=== PATIENT | male | born 1960 | race Caucasian/White ===

== ENCOUNTER 2017-07-05 12:13 | Emergency (ER) | payer OTHER ==
[~2017-07-05] VITALS: Ht 203.2 cm; Wt 85.0 kg
[2017-07-05] MEDS ORDERED: METOPROL TAR25 MG PO (12:27)
[2017-07-05] MEDS ORDERED: METO25TAB PO (12:27)
[2017-07-05] MEDS ORDERED: ZESTRIL10 M1 PO (12:27)
[2017-07-05 13:33] LABS: HEMATOCRIT 40.3 % (39.0-50.0); HEMOGLOBIN 14.2 g/dl (14.0-18.0); IMMATURE GRANULOCYTES 0.8 % (0.0-1.0); MEAN CELL VOLUME 99.3 fL CALC (80.0-100.0); MEAN CORPUSCULAR HGB CONC 35.2 g/L CALC (32.0-36.0); PLATELET COUNT 200 thou/uL (130-400); RED BLOOD COUNT 4.06 mill/uL (4.70-6.10); RED CELL DISTRI WIDTH 12.3 % (11.5-15.5)
[2017-07-05 13:57] LABS: ANION GAP 17 (6-22 (CALC)); BUN 11 mg/dL (9-20); BUN/CREATININE RATIO 13 (12-20 (CALC)); CARBON DIOXIDE 22 mmol/l (22-30); CHLORIDE 98 mmol/l (95-108); CREATININE 0.8 mg/dL (0.7-1.3); GFR > 60 ML/MIN (>=60 (CALC)); GFR FOR AFR.AMER. > 60 ML/MIN (>=60 (CALC)); GLUCOSE 135 mg/dL (75-110); POTASSIUM 4.9 mmol/l (3.5-5.1); SODIUM 132 mmol/l (137-146)
[2017-07-05] MEDS ORDERED: CLEOCIN300 MG PO (14:54)
[2017-07-05 15:03] LABS: MANUAL DIFFERENTIAL YES
[2017-07-05 15:05] LABS: BAND 77 % (0-8)
[2017-07-05 15:16] VITALS: BP 100/61
[2017-07-06] MEDS ORDERED: ZPAK PO (10:24)
== END 2017-07-05 15:16 | disposition home or self-care (01) | DRG 605 ==
LOC: ED 12:13
PROVIDERS: Emergency Medicine
DX: S61.432A Puncture wound without foreign body of left hand, initial encounter (principal); L03.114 Cellulitis of left upper limb; R50.9 Fever, unspecified; W55.03XA Scratched by cat, initial encounter; Y93.9 Activity, unspecified; Y92.009 Unspecified place in unspecified non-institutional (private) residence as the place of occurrence of the external cause

== ENCOUNTER 2017-07-06 09:33 | Emergency (ER) | payer OTHER ==
[~2017-07-06] VITALS: Ht 172.7 cm; Wt 80.0 kg
[~2017-07-06 09:33] MED LIST: CLEOCIN300 MG PO; METO25TAB PO; METOPROL TAR25 MG PO; ZESTRIL10 M1 PO
[2017-07-06] MEDS ORDERED: ZPAK PO (10:24)
[2017-07-06 10:35] VITALS: BP 113/75
== END 2017-07-06 10:36 | disposition home or self-care (01) | DRG 950 ==
LOC: ED
DX: S61.432D Puncture wound without foreign body of left hand, subsequent encounter (principal); W55.03XD Scratched by cat, subsequent encounter

== ENCOUNTER 2017-07-09 13:28 | Emergency (ER) | payer OTHER ==
[~2017-07-09] VITALS: Ht 172.7 cm; Wt 70.0 kg
[~2017-07-09 13:28] MED LIST changes: +ZPAK PO
[2017-07-09 14:00] VITALS: BP 92/59
== END 2017-07-09 14:05 | disposition home or self-care (01) | DRG 950 ==
LOC: ED 13:28
DX: S61.432D Puncture wound without foreign body of left hand, subsequent encounter (principal); W55.03XD Scratched by cat, subsequent encounter

== ENCOUNTER 2017-12-18 12:35 | Inpatient (IN) | payer OTHER ==
[2017-12-18] VITALS (21 sets, daily range): BP systolic 94–154; BP diastolic 60–120
[~2017-12-18] VITALS: Ht 172.7 cm; Wt 86.0 kg
[2017-12-18] MEDS ORDERED: ASPIRIN81 MG PO (13:22)
[2017-12-18 13:29] LABS: HEMATOCRIT 42.8 % (39.0-50.0); HEMOGLOBIN 15.4 g/dl (14.0-18.0); IMMATURE GRANULOCYTES 0.5 % (0.0-1.0); MEAN CELL VOLUME 94.9 fL CALC (80.0-100.0); MEAN CORPUSCULAR HGB 34.1 pG CALC (26.0-32.0); NEUT# 7.6 thou/uL (1.82-7.42); RED BLOOD COUNT 4.51 mill/uL (4.70-6.10); RED CELL DISTRI WIDTH 12.9 % (11.5-15.5)
[2017-12-18 13:56] LABS: ALBUMIN 4.7 g/dL (3.2-5.0); ALKALINE PHOSPHATASE 106 u/l (38-126); BUN 7 mg/dL (9-20); BUN/CREATININE RATIO 9 (12-20 (CALC)); CARBON DIOXIDE 21 mmol/l (22-30); CHLORIDE 88 mmol/l (95-108); CREATININE 0.8 mg/dL (0.7-1.3); GFR > 60 ML/MIN (>=60 (CALC)); GFR FOR AFR.AMER. > 60 ML/MIN (>=60 (CALC)); SGOT/AST 86 u/l (17-59); SGPT/ALT 90 u/l (21-72); SODIUM 127 mmol/l (137-146)
[2017-12-18 14:06] LABS: ANION GAP 23 (6-22 (CALC))
[2017-12-18 14:10] LABS: POTASSIUM 5.1 mmol/l (3.5-5.1)
[2017-12-18 14:26] LABS: TSH, 3RD GENERATION 1.75 uIU/mL (0.47 - 4.68)
[2017-12-19] VITALS (19 sets, daily range): BP systolic 114–174; BP diastolic 37–104
[2017-12-19 05:16] LABS: HEMATOCRIT 41.9 % (39.0-50.0); HEMOGLOBIN 14.5 g/dl (14.0-18.0); MEAN CELL VOLUME 98.6 fL CALC (80.0-100.0); MEAN CORPUSCULAR HGB 34.1 pG CALC (26.0-32.0); MEAN CORPUSCULAR HGB CONC 34.6 g/L CALC (32.0-36.0); RED BLOOD COUNT 4.25 mill/uL (4.70-6.10); RED CELL DISTRI WIDTH 13.3 % (11.5-15.5)
[2017-12-19 05:26] LABS: ALBUMIN 3.8 g/dL (3.2-5.0); ALKALINE PHOSPHATASE 89 u/l (38-126); BUN 8 mg/dL (9-20); BUN/CREATININE RATIO 11 (12-20 (CALC)); CARBON DIOXIDE 24 mmol/l (22-30); CREATININE 0.8 mg/dL (0.7-1.3); GFR > 60 ML/MIN (>=60 (CALC)); GFR FOR AFR.AMER. > 60 ML/MIN (>=60 (CALC)); POTASSIUM 4.7 mmol/l (3.5-5.1); SGOT/AST 51 u/l (17-59); SGPT/ALT 69 u/l (21-72); TOTAL PROTEIN 6.8 g/dL (6.3-8.2)
[2017-12-19 05:32] LABS: ANION GAP 16 (6-22 (CALC)); MAGNESIUM 2.7 mg/dL (1.6-2.3); SODIUM 136 mmol/l (137-146)
[2017-12-19 05:33] LABS: CHLORIDE 101 mmol/l (95-108)
[2017-12-20] VITALS (10 sets, daily range): BP systolic 128–153; BP diastolic 63–91
[2017-12-20 05:04] LABS: HEMATOCRIT 37.9 % (39.0-50.0); HEMOGLOBIN 13.3 g/dl (14.0-18.0); MEAN CELL VOLUME 97.7 fL CALC (80.0-100.0); MEAN CORPUSCULAR HGB 34.3 pG CALC (26.0-32.0); MEAN CORPUSCULAR HGB CONC 35.1 g/L CALC (32.0-36.0); RED BLOOD COUNT 3.88 mill/uL (4.70-6.10); RED CELL DISTRI WIDTH 13.1 % (11.5-15.5)
[2017-12-20 05:27] LABS: ANION GAP 17 (6-22 (CALC)); BUN 6 mg/dL (9-20); BUN/CREATININE RATIO 8 (12-20 (CALC)); CARBON DIOXIDE 22 mmol/l (22-30); CHLORIDE 103 mmol/l (95-108); CREATININE 0.8 mg/dL (0.7-1.3); GFR > 60 ML/MIN (>=60 (CALC)); GFR FOR AFR.AMER. > 60 ML/MIN (>=60 (CALC)); POTASSIUM 4.2 mmol/l (3.5-5.1); SODIUM 138 mmol/l (137-146)
[2017-12-20] MEDS ORDERED: ELIQUIS5 MG PO (11:56)
[2017-12-20] MEDS ORDERED: AMIODARONE200 MG PO (11:56)
== END 2017-12-20 15:15 | disposition home or self-care (01) | DRG 309 ==
LOC: ED 12:35 → ED-I 14:27 → ED 14:44 → ICU 14:45
PROVIDERS: Emergency Medicine; ADMIT Internal Medicine; ATTEND Internal Medicine
PROC: 3E0234Z Introduction of Serum, Toxoid and Vaccine into Muscle, Percutaneous Approach (ICD-10-PCS; principal; 2017-12-20)
DX: I48.0 Paroxysmal atrial fibrillation (principal); E87.1 Hypo-osmolality and hyponatremia; I48.92 Unspecified atrial flutter; I10 Essential (primary) hypertension; F10.20 Alcohol dependence, uncomplicated; Z23 Encounter for immunization
CPT/HCPCS: J0282; J1650; J3475

== ENCOUNTER 2018-01-10 14:50 | Emergency (ER) | payer OTHER ==
[~2018-01-10] VITALS: Ht 172.7 cm; Wt 80.0 kg
[~2018-01-10 14:50] MED LIST changes: +AMIODARONE200 MG PO; +ASPIRIN81 MG PO; +ELIQUIS5 MG PO
[2018-01-10 15:30] LABS: HEMATOCRIT 39.8 % (39.0-50.0); HEMOGLOBIN 14.3 g/dl (14.0-18.0); IMMATURE GRANULOCYTES 0.5 % (0.0-1.0); MEAN CELL VOLUME 97.1 fL CALC (80.0-100.0); MEAN CORPUSCULAR HGB 34.9 pG CALC (26.0-32.0); MEAN CORPUSCULAR HGB CONC 35.9 g/L CALC (32.0-36.0); NEUT# 5.07 thou/uL (1.82-7.42); RED BLOOD COUNT 4.1 mill/uL (4.70-6.10); RED CELL DISTRI WIDTH 12.5 % (11.5-15.5)
[2018-01-10 15:41] LABS: ALBUMIN 4.5 g/dL (3.2-5.0); ALKALINE PHOSPHATASE 79 u/l (38-126); BILIRUBIN, TOTAL 0.6 mg/dL (0.0-1.4); BUN 9 mg/dL (9-20); BUN/CREATININE RATIO 11 (12-20 (CALC)); CARBON DIOXIDE 23 mmol/l (22-30); CREATININE 0.8 mg/dL (0.7-1.3); GFR > 60 ML/MIN (>=60 (CALC)); GFR FOR AFR.AMER. > 60 ML/MIN (>=60 (CALC)); POTASSIUM 4.4 mmol/l (3.5-5.1); SGOT/AST 42 u/l (17-59); SGPT/ALT 55 u/l (21-72)
[2018-01-10 15:42] LABS: ANION GAP 19 (6-22 (CALC)); CHLORIDE 90 mmol/l (95-108); SODIUM 128 mmol/l (137-146)
[2018-01-10 16:40] LABS: URINE BILIRUBIN - DIPSTICK NEGATIVE (NEGATIVE); URINE BLOOD DIPSTICK NEGATIVE (NEGATIVE); URINE COLOR YELLOW; URINE GLUCOSE - DIPSTICK NEGATIVE (NEGATIVE); URINE KETONE NEGATIVE (NEGATIVE); URINE LEUK ESTERASE NEGATIVE (NEGATIVE); URINE NITRITE - DIPSTICK NEGATIVE (Negative); URINE PROTEIN - DIPSTICK NEGATIVE (NEG-TRACE); URINE UROBILINOGEN - DIPSTICK 0.2 E.U./dL (0.2)
[2018-01-10 16:42] LABS: URINE CLARITY CLEAR
[2018-01-10 18:10] VITALS: BP 136/83
== END 2018-01-10 18:04 | disposition home or self-care (01) | DRG 641 ==
LOC: ED 14:50
PROVIDERS: Emergency Medicine
DX: E87.1 Hypo-osmolality and hyponatremia (principal); I11.9 Hypertensive heart disease without heart failure; F17.210 Nicotine dependence, cigarettes, uncomplicated

== ENCOUNTER 2018-01-26 15:18 | Emergency (ER) | payer OTHER ==
[~2018-01-26] VITALS: Ht 172.7 cm; Wt 86.4 kg
[2018-01-26 16:22] LABS: HEMATOCRIT 38.2 % (39.0-50.0); IMMATURE GRANULOCYTES 1.2 % (0.0-1.0); MEAN CELL VOLUME 95.7 fL CALC (80.0-100.0); MEAN CORPUSCULAR HGB 35.1 pG CALC (26.0-32.0); MEAN CORPUSCULAR HGB CONC 36.6 g/L CALC (32.0-36.0); NEUT# 6.29 thou/uL (1.82-7.42); RED BLOOD COUNT 3.99 mill/uL (4.70-6.10); RED CELL DISTRI WIDTH 12.2 % (11.5-15.5)
[2018-01-26 16:31] LABS: ALBUMIN 4.4 g/dL (3.2-5.0); ALKALINE PHOSPHATASE 95 u/l (38-126); BILIRUBIN, TOTAL 0.6 mg/dL (0.0-1.4); BUN 8 mg/dL (9-20); BUN/CREATININE RATIO 12 (12-20 (CALC)); CARBON DIOXIDE 20 mmol/l (22-30); CHLORIDE 85 mmol/l (95-108); CREATININE 0.7 mg/dL (0.7-1.3); GFR > 60 ML/MIN (>=60 (CALC)); GFR FOR AFR.AMER. > 60 ML/MIN (>=60 (CALC)); LIPASE 121 u/l (23-300); POTASSIUM 4.6 mmol/l (3.5-5.1); SGOT/AST 41 u/l (17-59); SGPT/ALT 54 u/l (21-72); TOTAL PROTEIN 7.7 g/dL (6.3-8.2)
[2018-01-26 16:39] LABS: ANION GAP 20 (6-22 (CALC)); SODIUM 120 mmol/l (137-146)
[2018-01-26 19:18] LABS: URINE BILIRUBIN - DIPSTICK NEGATIVE (NEGATIVE); URINE BLOOD DIPSTICK NEGATIVE (NEGATIVE); URINE COLOR YELLOW; URINE GLUCOSE - DIPSTICK NEGATIVE (NEGATIVE); URINE KETONE NEGATIVE (NEGATIVE); URINE LEUK ESTERASE NEGATIVE (NEGATIVE); URINE NITRITE - DIPSTICK NEGATIVE (Negative); URINE PROTEIN - DIPSTICK NEGATIVE (NEG-TRACE); URINE SPECIFIC GRAVITY <=1.005; URINE UROBILINOGEN - DIPSTICK 0.2 E.U./dL (0.2)
[2018-01-26 19:23] LABS: URINE CLARITY CLEAR
[2018-01-26 20:31] VITALS: BP 140/80
== END 2018-01-26 20:31 | DRG 65 ==
LOC: ED 15:18
PROVIDERS: Family Medicine
DX: I63.9 Cerebral infarction, unspecified (principal); E87.1 Hypo-osmolality and hyponatremia; I48.91 Unspecified atrial fibrillation; R55 Syncope and collapse; F17.220 Nicotine dependence, chewing tobacco, uncomplicated; H53.8 Other visual disturbances; R53.1 Weakness; I10 Essential (primary) hypertension; R11.2 Nausea with vomiting, unspecified; R42 Dizziness and giddiness

== ENCOUNTER 2018-07-29 20:53 | Emergency (ER) | payer OTHER ==
[~2018-07-29] VITALS: Ht 172.7 cm; Wt 86.0 kg
[2018-07-29 22:18] LABS: HEMATOCRIT 37.7 % (39.0-50.0); HEMOGLOBIN 13.5 g/dl (14.0-18.0); IMMATURE GRANULOCYTES 0.5 % (0.0-5.0); MEAN CELL VOLUME 97.4 fL CALC (80.0-100.0); MEAN CORPUSCULAR HGB 34.9 pG CALC (26.0-32.0); MEAN CORPUSCULAR HGB CONC 35.8 g/L CALC (32.0-36.0); NEUT# 5.84 thou/uL (1.82-7.42); RED BLOOD COUNT 3.87 mill/uL (4.70-6.10); RED CELL DISTRI WIDTH 11.9 % (11.5-15.5)
[2018-07-29 22:43] LABS: ALBUMIN 4.3 g/dL (3.2-5.0); ALKALINE PHOSPHATASE 78 u/l (38-126); BILIRUBIN, TOTAL 0.5 mg/dL (0.0-1.4); BUN 10 mg/dL (9-20); BUN/CREATININE RATIO 10 (12-20 (CALC)); CARBON DIOXIDE 18 mmol/l (22-30); CREATININE 1.1 mg/dL (0.7-1.3); GFR > 60 ML/MIN (>=60 (CALC)); GFR FOR AFR.AMER. > 60 ML/MIN (>=60 (CALC)); POTASSIUM 4.5 mmol/l (3.5-5.1); SGOT/AST 55 u/l (17-59); TOTAL PROTEIN 7.3 g/dL (6.3-8.2)
[2018-07-29 22:53] LABS: MYOGLOBIN 58 ng/mL (0 - 121)
[2018-07-29 23:04] LABS: ANION GAP 20 (6-22 (CALC)); CHLORIDE 97 mmol/l (95-108); SODIUM 130 mmol/l (137-146)
[2018-07-29 23:21] LABS: URINE BILIRUBIN - DIPSTICK NEGATIVE (NEGATIVE); URINE BLOOD DIPSTICK NEGATIVE (NEGATIVE); URINE COLOR YELLOW; URINE GLUCOSE - DIPSTICK NEGATIVE (NEGATIVE); URINE KETONE NEGATIVE (NEGATIVE); URINE LEUK ESTERASE NEGATIVE (NEGATIVE); URINE NITRITE - DIPSTICK NEGATIVE (Negative); URINE PROTEIN - DIPSTICK NEGATIVE (NEG-TRACE); URINE SPECIFIC GRAVITY <=1.005; URINE UROBILINOGEN - DIPSTICK 0.2 E.U./dL (0.2)
[2018-07-29 23:23] LABS: BARBITURATES NEGATIVE (NEGATIVE); COCAINE NEGATIVE (NEGATIVE); METHADONE NEGATIVE (NEGATIVE); OXCYCODONE NEGATIVE (NEGATIVE); TETRAHYDROCANNABIONOL NEGATIVE (NEGATIVE); TRICYLIC ANTIDEPRESSANTS NEGATIVE (NEGATIVE)
[2018-07-29 23:26] LABS: URINE CLARITY CLEAR
[2018-07-29] MEDS ORDERED: AMOXICILLIN500 MG PO (23:50)
[2018-07-30 00:58] VITALS: BP 126/70
== END 2018-07-30 00:53 | disposition home or self-care (01) | DRG 153 ==
LOC: ED 20:53
PROVIDERS: Emergency Medicine
DX: J02.0 Streptococcal pharyngitis (principal); F41.9 Anxiety disorder, unspecified; I10 Essential (primary) hypertension; I48.91 Unspecified atrial fibrillation; F17.210 Nicotine dependence, cigarettes, uncomplicated

== ENCOUNTER 2019-12-18 | Emergency (ER) | payer OTHER ==
[~2019-12-18] MED LIST changes: +AMOXICILLIN500 MG PO
[2019-12-18] MEDS ORDERED: LOSARTAN POTASS50 MG PO (16:06)
[2019-12-18] MEDS ORDERED: LIPITOR80 M1 PO (16:06)
[2019-12-18] MEDS ORDERED: LEVOTHYROXIN50 MCG PO (16:06)
[2019-12-18] MEDS ORDERED: ASPIRIN81 MG PO (16:06)
[2019-12-18 17:06] LABS: HEMATOCRIT 38.6 % (39.0-50.0); HEMOGLOBIN 13.8 g/dl (14.0-18.0); IMMATURE GRANULOCYTES 0.4 % (0.0-5.0); MEAN CORPUSCULAR HGB 34.3 pG CALC (26.0-32.0); MEAN CORPUSCULAR HGB CONC 35.8 g/dL CAL (32.0-36.0); NEUT# 3.02 thou/uL (1.82-7.42); RED BLOOD COUNT 4.02 mill/uL (4.70-6.10); RED CELL DISTRI WIDTH 12.4 % (11.5-15.5)
[2019-12-18 17:26] LABS: ALBUMIN 4.3 g/dL (3.2-5.0); ALKALINE PHOSPHATASE 104 u/l (38-126); BILIRUBIN, TOTAL 0.5 mg/dL (0.0-1.4); BUN 10 mg/dL (9-20); BUN/CREATININE RATIO 14 (12-20 (CALC)); CHLORIDE 97 mmol/l (95-108); CREATININE 0.7 mg/dL (0.7-1.3); ETHYL ALCOHOL 74 mg/dl (0-30); GFR > 60 ML/MIN (>=60 (CALC)); GFR FOR AFR.AMER. > 60 ML/MIN (>=60 (CALC)); LIPASE 301 u/l (23-300); POTASSIUM 4.2 mmol/l (3.5-5.1); SODIUM 130 mmol/l (137-146); TOTAL PROTEIN 7.5 g/dL (6.3-8.2)
[2019-12-18 17:27] LABS: ACT PARTIAL THROMBO TIME 24.8 SECONDS (20.0-32.5)
[2019-12-18 17:28] LABS: ANION GAP 15 (6-22 (CALC)); CARBON DIOXIDE 22 mmol/l (22-30); MAGNESIUM 1.6 mg/dL (1.6-2.3); SGOT/AST 113 u/l (17-59)
[2019-12-18 18:29] LABS: URINE BILIRUBIN - DIPSTICK NEGATIVE (NEGATIVE); URINE BLOOD DIPSTICK NEGATIVE (NEGATIVE); URINE COLOR YELLOW; URINE GLUCOSE - DIPSTICK NEGATIVE (NEGATIVE); URINE KETONE NEGATIVE (NEGATIVE); URINE LEUK ESTERASE NEGATIVE (NEGATIVE); URINE NITRITE - DIPSTICK NEGATIVE (Negative); URINE PROTEIN - DIPSTICK NEGATIVE (NEG-TRACE); URINE UROBILINOGEN - DIPSTICK 0.2 E.U./dL (0.2)
[2019-12-18 18:33] LABS: BARBITURATES NEGATIVE (NEGATIVE); COCAINE NEGATIVE (NEGATIVE); METHADONE NEGATIVE (NEGATIVE); OXCYCODONE NEGATIVE (NEGATIVE); TETRAHYDROCANNABIONOL NEGATIVE (NEGATIVE); TRICYLIC ANTIDEPRESSANTS NEGATIVE (NEGATIVE)
== END 2019-12-18 19:45 | disposition home or self-care (01) | DRG 641 ==
DX: E87.1 Hypo-osmolality and hyponatremia (principal); I10 Essential (primary) hypertension; F10.20 Alcohol dependence, uncomplicated; I25.10 Atherosclerotic heart disease of native coronary artery without angina pectoris; I48.91 Unspecified atrial fibrillation